=== PATIENT | male | born 1995 | race American Indian/Alaskan Native ===

== ENCOUNTER 2019-05-26 22:51 | Emergency (ER) | payer OTHER ==
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
--- NOTE | 2019-05-27 02:21 | XRay Report ---
EXAMINATION: Right shoulder radiograph, 3 views, 05/27/2019 CLINICAL INFORMATION: Right shoulder pain COMPARISON: None. FINDINGS: There is no evidence of acute fracture or dislocation of the right shoulder. No significant bony degenerative changes are identified. Signer Name: Ofelia Alvarez MD Signed: 05/27/2019 2:17 AM Workstation Name: [id number]
--- NOTE | 2019-05-27 02:48 | XRay Report ---
EXAMINATION: Right elbow radiograph, 3 views, 05/27/2019 CLINICAL INFORMATION: Right elbow pain COMPARISON: None. FINDINGS: There is no evidence of acute fracture or dislocation of the right elbow. No significant so ft tissue swelling is seen. Signer Name: Ofelia Alvarez MD Signed: 05/27/2019 2:43 AM Workstation Name: [id number]
[2019-05-27 02:58] VITALS: BP 118/64
== END 2019-05-27 02:59 | disposition home or self-care (01) ==
LOC: ED 22:51
DX: M25.511 Pain in right shoulder (principal); M54.9 Dorsalgia, unspecified; J45.909 Unspecified asthma, uncomplicated; Z79.899 Other long term (current) drug therapy; V49.59XA Passenger injured in collision with other motor vehicles in traffic accident, initial encounter; Y93.89 Activity, other specified; Y92.410 Unspecified street and highway as the place of occurrence of the external cause; Y99.8 Other external cause status